=== PATIENT | female | born 1975 | race Caucasian/White ===

== ENCOUNTER 2017-03-02 19:33 | Emergency (ER) | payer OTHER ==
[~2017-03-02] VITALS: Ht 167.6 cm; Wt 79.5 kg
[2017-03-02 19:40] VITALS: BP 144/93; PULSE 88; RESP 20; O2SAT 98
--- NOTE | 2017-03-02 20:27 | DRSVH ---
PROCEDURE: CT BRAIN WITHOUT CONTRAST ([id number]) INDICATIONS: Dizziness. Neuro symptoms TECHNIQUE: Noncontrast 4.5 mm thick angled axial sections acquired from the foramen magnum to the vertex, with c oronal reformats. COMPARISON: None. FINDINGS: Image quality: Excellent. CSF spaces: Basal cisterns are patent. No extra-axial fluid collections. Ventricles are normal in size and shape. Brain: No midline shift. No intracranial masses or hemorrhage. Guerrero-white matter interface is norm al. Skull and face: Calvarium and visualized facial bones are intact, without suspicious lesions. Sinuses: Visualized sinuses and mastoids are clear. IMPRESSION: No acute intracranial disease process. Dictated by: Grace Lomeli MD, PhD on 03/02/2017 at 20:24 Approved by: Grace Lomeli MD, PhD on 03/02/2017 at 20:26
[2017-03-02 21:01] VITALS: BP 143/88; PULSE 62; RESP 18; O2SAT 100
--- NOTE | 2017-03-02 21:03 | ED.REPORT ---
HPI-General Illness Date of Service Mar 02, 2017 ED Provider: Dr. Maciel Pt is a 41 year old female with no pertinent medical history is referred to the ED from Urgent Care due to lightheadedness. The pt experienced an episode of lightheadedness one week ago accompanied by dizziness and blurred vision. The symptoms occurred again last night and intermittently throughout the day today while the pt was sitting and standing. She denies syncope, nausea, vomiting, diaphoresis, palpitations, cough, focal weakness, headache, fever, reduced appetite, reduced fluid intake, incontinence or associated pain. The symptoms have not occurred while the pt is lying down. She does have chronic moderate left lower quadrant abdominal pain due to prior ectopic and surgery there. There has been no change in that, and she cannot associate any specific episodes of pain with any of these lightheadedness episodes. Nursing Notes Stated Complaint: URGENT CARE REFERRED FOR CAT SCAN Chief Complaint: Neuro Symptoms/ Deficits Nursing Notes Reviewed: Yes Allergies: Coded Allergies: Sulfa (Sulfonamide Antibiotics) (Verified Allergy, Unknown, 03/02/17) oxycodone (Verified Adverse Reaction, Unknown, 03/02/17) Bad dreams No Active Prescriptions or Reported Meds General Time Seen by MD: 21:03 Chief Complaint Other (Lightheadedness) Hx Obtained From: Patient Arrived By: Walk-in Sudden in Onset?: No Onset Occurred: 1 week ago Symptom Duration: Intermittent Recent Healthcare: No recent hospitalization Similar Sx Previous: No Past Medical History Past Medical History G3 P? Ectopic x1 Past Surgical History surgery for her previous ectopic Reports: Appendectomy Smoking History Never Smoker Social History Alcohol Use: Denies alcohol use Other Social History: Occupation works as a telecommunication tower technician Ambulatory Status Independent Review of Systems denies lack of appetite denies reduced fluid intake Full Review of Systems Constitutional: Denies: Fever Eyes: Reports: Blurred bilateral Respiratory: Denies: Non-productive cough, Shortness of breath Cardiovascular: Denies: Chest pain, Palpitations GI: Denies: Abdominal pain, Nausea, Vomiting Female: Denies: Incontinence Skin: Denies Diaphoresis Neurologic: Reports: Dizziness, Lightheaded, Vision change, Denies: Change LOC, Focal weakness, Headache, Syncope Complete sys rev & neg: except as marked. Physical Exam Vital Signs Vital Signs Date Time Temp Pulse Resp B/P Pulse Ox O2 Delivery O2 Flow Rate FiO2 03/03/17 00:21 81 17 110/71 98 Room Air 03/02/17 23:39 93 12 125/63 96 Room Air 03/02/17 22:02 80 121/84 03/02/17 22:02 98 135/98 03/02/17 21:01 62 18 143/88 100 Room Air 03/02/17 19:40 36.5 88 20 144/93 98 Initial VS: Reviewed General/Constitutional: Awake, Alert, No acute distress Head / Eyes: Atraumatic, Normocephalic, PERRL, EOMI ENT: Atraumatic, Airway patent, Mucous membranes moist Neck: Atraumatic, Supple, Full range of motion Respiratory / Chest: Atraumatic, Breath sounds NL, Breath sounds = bilat, No respiratory distress Cardiovascular: Heart rate NL, Regular rhythm, Heart sounds NL Abdomen: Atraumatic, Soft Tender LLQ to palpation Back: Atraumatic, Inspection NL, Full range of motion Upper Extremities Upper Extremity / MS: Atraumatic, Inspection NL, Full range of motion, No edema Lower Extremity / Pelvis / MS: Atraumatic, Inspection NL, Full range of motion , No edema Skin: Atraumatic, Color NL, No rash, Warm, Dry Neurologic: Oriented X3, Speech NL, No motor deficits, No sensory deficits, CN II - XII intact Psychiatric: Affect NL, Mood NL Interpretation & Diagnostics Lab Results Interpretation Result Diagram: 03/02/17224603/02/172246 Test 03/02/17 22:09 03/02/17 22:47 Urine Color Yellow (YELLOW) Urine Appearance Clear (CLEAR,HAZY) Urine pH 6.0 (5.0-8.0) Urine Specific [place] 1.020 (1.003-1.035) Urine Protein Negativemg/dL (NEG,TRACE) Urine Glucose (UA) Negativemg/dL (NEGATIVE) Urine Ketones Negativemg/dL (NEGATIVE) Urine Occult Blood Trace (NEGATIVE) Urine Nitrite Negative (NEGATIVE) Urine Bilirubin Negative (NEGATIVE) Urine Urobilinogen Normalmg/dL (NORMAL) Urine Leukocyte Esterase Negative (NEGATIVE) Urine RBC 0-2/hpf (0-2) Urine WBC 0-5/hpf (0-5) Urine Epithelial Cells Occasional/hpf (NONE-MOD) Urine Crystals None seen (NONE SEEN) Urine Bacteria Few/hpf (NONE-FEW) Urine Hyaline Casts None/lpf (NONE) Urine Granular Casts None seen (NONE SEEN) Urine Waxy Casts None seen (NONE SEEN) Urine Red Blood Cell Casts None seen (NONE SEEN) Urine White Blood Cell Casts None seen (NONE SEEN) Urine Mucus None seen (None Seen) Urine Trichomonas None seen (NONE SEEN) Urine Yeast None (NONE SEEN) Urinalysis Comment None Urine Culture Reflexed Not indicated White Blood Count 9.6th/mm3 (3.8-10.1) Red Blood Count 5.01mil/mm3 (3.90-5.20) Hemoglobin 13.1g/dL (12.0-15.6) Hematocrit 41.2% (35.0-46.0) Mean Corpuscular Volume 82.2fL (81-100) Mean Corpuscular Hemoglobin 26.1pg (27.0-35.0) Mean Corpuscular Hemoglobin Concent 31.8% (32.0-37.0) Red Cell Distribution Width 13.1% (12.3-15.4) Platelet Count 315bil/L (150-400) Neutrophils (%) (Auto) 56.6% (40-74) Lymphocytes (%) (Auto) 34.5% (14-46) Monocytes (%) (Auto) 6.9% (4-12) Eosinophils (%) (Auto) 1.6% (0-5) Basophils (%) (Auto) 0.3% (0-3) Prothrombin Time 9.9sec (8.1-12.5) Prothromb Time International Ratio 0.93ratio Activated Partial Thromboplast Time 31.0sec (22.8-33.0) Sodium Level 139mEq/L (134-144) Potassium Level 3.8mEq/L (3.5-5.2) Chloride Level 103mEq/L (97-108) Carbon Dioxide Level 21mmol/L (18-29) Blood Urea Nitrogen 9mg/dL (6-20) Creatinine 0.51mg/dL (0.57-1.00) Estimat Glomerular Filtration Rate 192mL/min (>59) Glucose Level 92mg/dL (60-99) Calcium Level 9.6mg/dL (8.5-10.1) Magnesium Level 2.1mg/dL (1.6-2.6) Total Bilirubin 0.3mg/dL (0.0-1.2) Aspartate Amino Transf (AST/SGOT) 17U/L (0-50) Alanine Aminotransferase (ALT/SGPT) 15U/L (0-32) Alkaline Phosphatase 75U/L (25-150) Troponin T 0.010ug/L (0.0-0.011) Pro-B-Type Natriuretic Peptide 21.04pg/mL (0-130) Total Protein 8.1g/dL (6.4-8.4) Albumin 4.4g/dL (3.4-5.0) ECG Interpretation ECG Interpretation: Normal sinus rhythm rate 75 Time: 21:57 Interpreted by: ED physician CT Head Interpretation IMPRESSION: No acute intracranial disease process. Dictated by: Grace Lomeli MD, PhD on 03/02/2017 at 20:24 Approved by: Grace Lomeli MD, PhD on 03/02/2017 at 20:26 Interpretation / Wet Read by: Interpret - Radiologist Re-Eval/Medical Decision Med Decision/Clinical Course 41-year-old generally good health presents with episodes of lightheadedness without syncope. No associated palpitations shortness of breath or any other signal symptoms. These may possibly be vagal episodes in response to abdominal pain but she cannot make that association with any certainty. I doubt tachydysrhythmia but that remains to be assessed if she continues to have these episodes. Doubt significant bradycardia dysrhythmia also but not impossible from a vagal episode standpoint. Holter monitoring would be a reasonable next step if the symptoms persist. She is advised to maintain hydration, I will up with PCP in the office, and they may consider Holter monitoring if this requires further evaluation. Source of Hx: Old records Time of Eval: 00:16 Patient Status: Condition improved Re-Evaluation/Progress Note: Pt rechecked. Informed pt of plan for discharge. Pt understands and agrees with plan. F/U instructions and RTER warnings given. All questions addressed. Counseled Regarding: Diagnosis, Lab results, Need for follow-up, When/why to return to ED Discharge & Departure Primary Impression: Pre-syncope Additional Impression: Chronic abdominal pain Disposition: Home Discharge Condition All VS Reviewed: Yes Condition: Stable Patient Instructions: Near Syncope (ED) Additional Instructions: We do not find evidence of significant cardiac disease, nor any brain lesion, nor any other serious cause for your dizziness. The source of this is also not demonstrably orthostatic hypotension at this point. Your blood pressure was stable in the lying down and standing positions. For the moment, maintain hydration as best you can with electrolyte replacement solutions such as Powerade or Gatorade or the diet versions of that. Can also use Pedialyte or any of multiple electrolyte replacement solutions on the market. Follow-up with your doctor in the office. If the problem keeps happening, then it would be reasonable to obtain long-term cardiac monitoring studies, such as a Holter exam. Return if any immediate issues, and particularly if you actually lose consciousness. Forcefully, and near-syncope is a much safer and better category of problems than complete syncope. Referrals: Rodo Hernandez MD (PCP) Scribe Attestation Portions of this note were transcribed by Carrie Packer and Oscar Almodovar. I, Dr. Maciel personally performed the history, physical exam and medical decision -making; I reviewed and confirmed the accuracy of the information in the transcribed note. copies to: Rodo Hernandez MD, Christopher W MD Mar 02, 2017 21:03 Carrie Packer Mar 02, 2017 21:23 OSCAR ALMODOVAR Mar 02, 2017 23:43
[2017-03-02 22:02] VITALS: BP_SYST 121; BP_SYST 135; BP_DIAS 84; BP_DIAS 98; PULSE 80; PULSE 98
[2017-03-02 22:25] LABS: APPEARANCE,URINE CLEAR (CLEAR,HAZY); COLOR,URINE YELLOW (YELLOW); OCCULT BLOOD,URINE TRACE (NEGATIVE); UROBILINOGEN,URINE NORMAL (NORMAL)
[2017-03-02 22:51] LABS: BASOPHILS % (AUTO) 0.3 % (0-3); EOSINOPHILS % (AUTO) 1.6 % (0-5); MONOCYTES % (AUTO) 6.9 % (4-12); Mean Corpuscular Hemoglobin 26.1 pg (27.0-35.0); Mean Corpuscular Volume 82.2 fL (81-100); NEUTROPHILS % (AUTO) 56.6 % (40-74); Platelet Count 315 bil/L (150-400)
[2017-03-02 23:07] LABS: INR 0.93 ratio
[2017-03-02 23:18] LABS: TROPONIN T 0.01 ug/L (0.0-0.011)
[2017-03-02 23:29] LABS: Magnesium 2.1 mg/dL (1.6-2.6)
[2017-03-02 23:39] VITALS: BP 125/63; PULSE 93; RESP 12; O2SAT 96
[2017-03-03 00:21] VITALS: BP 110/71; PULSE 81; RESP 17; O2SAT 98
== END 2017-03-03 00:22 | disposition home or self-care (01) ==
LOC: SED 19:33
DX: R55 Syncope and collapse (principal); R10.31 Right lower quadrant pain; Z90.89 Acquired absence of other organs; Z88.2 Allergy status to sulfonamides